=== PATIENT | male | born 1995 | race Caucasian/White ===

== ENCOUNTER 2018-12-20 21:27 | Emergency (ER) | payer SELFPAY ==
[~2018-12-20] VITALS: Ht 185.4 cm; Wt 131.8 kg
[2018-12-20 21:41] VITALS: BP 141/91; TEMP 97.6
[2018-12-20 23:50] VITALS: PULSE 91
== END 2018-12-20 23:50 | disposition home or self-care (01) ==
LOC: COL.ER 21:27
DX: S61.011A Laceration without foreign body of right thumb without damage to nail, initial encounter (principal); Z23 Encounter for immunization; W26.8XXA Contact with other sharp object(s), not elsewhere classified, initial encounter; Y92.59 Other trade areas as the place of occurrence of the external cause